=== PATIENT | female | born 1980 ===

== ENCOUNTER → 2021-12-16 | Day surgery (SDC) | payer OTHER ==
[~2021-12-16] MED LIST: BISOPROL PO
== END | disposition home or self-care (01) ==
LOC: ADM 12-11 08:15 → CIR.AMB 05:25
PROVIDERS: ATTEND Otolaryngology Otology & Neurotology
DX: H72.02 Central perforation of tympanic membrane, left ear (principal); Z20.822 Contact with and (suspected) exposure to COVID-19

== ENCOUNTER 2023-02-04 06:00 | Day surgery (SDC) | payer OTHER ==
[~2023-02-04] VITALS: Ht 160 cm; Wt 77.1 kg
[~2023-02-04 06:00] MED LIST changes: +DETROL2 MG PO; +PROTONIX40 MG PO; +ZEBETA PO; +ZYRTEC10 M3 PO
== END 2023-02-04 13:25 | disposition home or self-care (01) ==
LOC: CIR.AMB 06:00
PROVIDERS: ATTEND Surgery
DX: K80.10 Calculus of gallbladder with chronic cholecystitis without obstruction (principal); Z88.2 Allergy status to sulfonamides; I10 Essential (primary) hypertension; Z20.822 Contact with and (suspected) exposure to COVID-19